=== PATIENT | female | born 1975 | race African-American/Black ===

== ENCOUNTER 2023-02-12 18:12 | Emergency (ER) | payer OTHER, SELFPAY ==
--- NOTE | ~2023-02-12 | XR_ITS ---
EXAMINATION: XR ankle RT min 3V DATE: 02/12/2023 18:33 INDICATION: Right ankle injury. TECHNIQUE: 4 views of right ankle were obtained. COMPARISON: None. FINDINGS: There is an oblique fracture of distal fibula with medial aspect of the fracture line at th e level of the tibial plafond. The distal fracture demonstrates 2 mm posterolateral displacement. The re is widening of the medial ankle mortise. There are chip avulsion fractures of medial malleolus wit h 3 mm distraction. There is mild osteoarthritis of talonavicular joint. Ankle soft tissue tissue swe lling is noted. IMPRESSION: 1. Fractures of medial and lateral malleoli. Reviewed, dictated and finalized at location E.
[2023-02-12 18:17] VITALS: BP 158/92; PULSE 84; RESP 16; TEMP 36.8; O2SAT 99
--- NOTE | 2023-02-12 19:25 | ED.LOWEXIN ---
HPI - Extremity Injury (Lower) General Chief Complaint: Extremity Injury, Lower <GRETEL Cantu Last Filed: 02/12/23 22:51> Stated Complaint: fell/slipped down 2 steps; right ankle pain <GRETEL Cantu Last Filed: 02/12/23 22:51> Time Seen by Provider: 02/12/23 18:23 <GRETEL Cantu Last Filed: 02/12/23 22:51> History of Present Illness HPI Narrative: 48 y/o F reports for evaluation of right ankle pain after she injured it a mechanical fall approximately 1 hour ago. Patient states she was walking on the steps in the rain, slipped on the wet and muddy steps, landed on her right ankle. She denies hitting her head, no loss of consciousness, no other injuries acquired during fall. She is complaining of right medial lateral ankle pain and edema. Denies paresthesias. <GRETEL Cantu Last Filed: 02/12/23 22:51> Related Data Home Medications: Home Medications Medication Instructions Recorded Confirmed doxycycline hyclate 100 mg capsule 100 mg PO DAILY 02/12/23 02/13/23 gabapentin 100 mg capsule 100 mg PO HS 02/12/23 02/13/23 <GRETEL Cantu Last Filed: 02/12/23 22:51> Allergies/Adverse Reactions: Allergies Allergy/AdvReac Type Severity Reaction Status Date / Time No Known Allergies Allergy Verified 02/13/23 13:46 <GRETEL Cantu Last Filed: 02/12/23 22:51> Review of Systems Review of Systems: CONSTITUTIONAL: Denies fever, chills EYES: Denies visual changes, redness, or discharge. ENT: Denies rhinorrhea, congestion, sore throat, or otalgia. CARDIOVASCULAR: Denies chest pain, palpitations, or edema. RESPIRATORY: Denies cough or dyspnea. GASTROINTESTINAL: Denies abdominal pain, nausea, vomiting, or diarrhea. GENITOURINARY: Denies dysuria or hematuria. SKIN: Denies rash or itching. MUSCULOSKELETAL: See HPI NEUROLOGIC: Denies headache, numbness, dizziness, or weakness. PSYCHIATRIC: Denies anxiety or depression. <Sammi Manjarrez PA-C - Last Filed: 02/12/23 22:51> [facility] Past Medical History Medical History: Medical History (Updated 02/17/23 @ 14:05 by Ervin Velez MD) Breast cancer Obesity <Sammi Manjarrez PA-C - Last Filed: 02/12/23 22:51> Social History Social History: Social History (Updated 02/13/23 @ 11:06 by Gissell Hernandez MA) Smoking packs per day: 0.5 Smoking cigarettes per day: 10.0 Years smoked: 12 Smoking pack-years: 6.00 Smoking status: Former smoker Tobacco type: cigarettes Smoking end date: 10/05/19 Alcohol intake: current Alcohol use details: RARE Substance use: never Substance use type: does not use Lack of Transportation: No Lack of Food: Never True Current Housing: I Have Housing Concerned About Future Housing: No Difficulty Paying Gas/Electric Bills: No Difficulty Paying for Meds: No Currently Unemployed: No Education: High School Diploma/GED Difficulty w/ Childcare or Family Care: No Living arrangements: alone Spiritual care concerns: No <Sammi Manjarrez PA-C - Last Filed: 02/12/23 22:51> Exam Narrative: GENERAL: Well-appearing, in no acute distress. HEAD: Normocephalic EYES: PERRLA ENT: Nares clear. Mucous membranes moist. Oropharynx without tonsillar hypertrophy exudate or other lesions. NECK: Supple. CHEST: No respiratory distress. Clear to auscultation, no adventitious breath sounds. HEART: Regular rate and rhythm. No murmur heard. Normal peripheral pulses. EXTREMITIES: RLE: Edema overlying the medial and lateral malleolus with tenderness to palpation. No tenderness to remaining lower extremity. Patient able to wiggle toes. DP pulse 2+. Sensation intact. No overlying skin changes or lesions. SKIN: Warm, dry, no rash. NEURO: No focal deficits. Alert and oriented x3. PSYCH: Normal mood and affect. <Sammi Manjarrez PA-C - Last Filed: 02/12/23 22:51> Course HELP DESK SUPERVISOR/PA Physician Supervision
[2023-02-12] MEDS: IBUPROFEN 600 MG TABLET PO (20:16)
[2023-02-12] MEDS: HYDROcodone/acetaminophen (*CRX) 5-325 MG TABLET 1 TAB PO (20:16)
--- NOTE | 2023-02-12 20:26 | PC.NURSE ---
short leg posterior splint placed, crutches given with teaching
== END 2023-02-12 20:27 | disposition home or self-care (01) ==
PROVIDERS: Emergency Provider Physician Assistant
DX: S82.51XA Displaced fracture of medial malleolus of right tibia, initial encounter for closed fracture (principal); S82.61XA Displaced fracture of lateral malleolus of right fibula, initial encounter for closed fracture; W10.9XXA Fall (on) (from) unspecified stairs and steps, initial encounter
CPT/HCPCS: 29515; 73610; 99284; A9270

== ENCOUNTER 2023-02-18 00:38 | Day surgery (SDC) | payer OTHER, SELFPAY ==
[2023-02-13 13:46] VITALS: BMI 31.3
--- NOTE | 2023-02-13 13:52 | PC.NURSE ---
Report to the Outpatient Waiting Room, entrance under the green pavilion located off [facility], at time 0600 on date 02/18/23. Planned Procedure Time: 0730. Time changes happen often and if your time is changed the preop area will call you the afternoon before. - You and your visitor will be asked to self-screen and do not enter if you have any COVID symptoms. - A mask is optional within the hospital at this time. Patients may have clear liquids (water, carbonated beverages, clear teas, apple juice) until 3 hours prior to surgery with a maximum of 20 ounces. - No food from midnight until time of surgery Take the following medications with a SIP of water the morning of surgery: DOXYCYCLINE, OXYCODONE IF NEEDED DO NOT STOP ANY OF YOUR OTHER PRESCRIPTION MEDICATIONS PRIOR TO SURGERY EXCEPT THE FOLLOWING Medications to discontinue per physician: N/A Date to take last dose: N/A Please no make-up, nail haitian, hairspray, perfume, deodorant, or body powder the day of surgery. No jewelry (including any body piercings) or valuables the day of surgery, leave them at home. Please take a shower or bath the night before, or the morning of, surgery with an antibacterial soap. Wear comfortable, loose fitting clothing. - Jewelry must be removed prior to entering the operating room. Rings and piercings that are not removed may be cut off. - The hospital will not accept responsibility for valuables. - Please leave all valuables, including medications, at home the day of surgery. If you are going home after surgery, a licensed warehouse associate driver must drive you home. - NO public transportation without another adult if you receive anesthesia. - We recommend that an adult stay with you for 24 hours following discharge. - We also recommend that you do not drive, make important decision, drink alcoholic beverages, or take any drugs that were not prescribed by your health care provider for at least 24 hours after your discharge time. Follow any additional instructions given to you from your surgeon. If you or anyone in your household have experienced Covid symptoms in the past week, please notify your surgeon or the nurse liaison at the phone number below for possible testing. Telephone instructions given to PT - CANDIDO PATEL and asked if any additional questions and then verbalized understanding. Patient advised to call surgeon office or pre surgery nurse liaison [phone] if any additional questions.
--- NOTE | 2023-02-17 14:05 | P.PNAN_ITS ---
Anes - Initial Pre Proc Eval Procedure: Operation Date: 02/18/23 07:30 Proposed Procedures p Open Reduction Internal Fixation Right Lateral Malleolus Ankle Fracture - Pravin Kim MD Date/Time: 02/17/23 14:05 Surgeon: Pravin Kim MD Pre Op Diagnosis: right ankle lateral maleolar ankle fx Patient Data Age: 48 Gender: F Height: 1.7 m Weight: 90.75 kg Allergies Allergy/AdvReac Type Severity Reaction Status Date / Time No Known Allergies Allergy Verified 02/18/23 06:39 Home Medications Medication Instructions Recorded Confirmed Type doxycycline hyclate 100 mg capsule 100 mg PO DAILY 02/12/23 02/18/23 History gabapentin 100 mg capsule 100 mg PO HS 02/12/23 02/18/23 History oxycodone 5 mg tablet 5 mg PO Q4H PRN pain #14 tabs 02/12/23 02/18/23 Rx Patient hx anesthesia problems: none Family hx anesthesia problems: none Results Review: All pre-operative results and documents have been reviewed as part of the pre- operative evaluation. [facility] Past Medical History Medical History (Updated 02/17/23 @ 14:05 by Ervin Velez MD) Breast cancer Obesity Social History Social History (Updated 02/13/23 @ 11:06 by Gissell Hernandez MA) Smoking packs per day: 0.5 Smoking cigarettes per day: 10.0 Years smoked: 12 Smoking pack-years: 6.00 Smoking status: Former smoker Tobacco type: cigarettes Smoking end date: 10/05/19 Alcohol intake: current Alcohol use details: RARE Substance use: never Substance use type: does not use Lack of Transportation: No Lack of Food: Never True Current Housing: I Have Housing Concerned About Future Housing: No Difficulty Paying Gas/Electric Bills: No Difficulty Paying for Meds: No Currently Unemployed: No Education: High School Diploma/GED Difficulty w/ Childcare or Family Care: No Living arrangements: alone Spiritual care concerns: No Anes - Eval Final PreProcedure Day of Procedure 02/17/23 14:05 Patient weight: obese Heart: regular rate and rhythm Lungs: clear to auscultation and normal air movement Airway: Mallampati scale class II Neurological: alert and oriented Last oral intake: >/= 8 hours ASA classification: III Emergent: no Anesthetic plan: proceed Anesthesia type and monitoring: general LMA Results Review: All pre-operative results and documents have been reviewed as part of the pre-op erative evaluation. Informed Consent: The patient's anesthetic plan and its attendant risks and benefits were discussed with the patient/family/POA. Questions were solicited and answers provided to the satisfaction of the patient/family/POA.
[2023-02-18] VITALS (9 sets, daily range): BP systolic 134–154; BP diastolic 79–98; PULSE 75–91; RESP 12–20; TEMP 36.1–36.7; O2SAT 93–100
--- NOTE | ~2023-02-18 | XR_ITS ---
EXAMINATION: XR surgery orthopedic DATE: 02/18/2023 08:37 INDICATION: Distal fibular fracture. TECHNIQUE: 3 intraoperative spot fluoroscopic views of right ankle were obtained. I was not present. Fluoroscopy exposure time was 30 seconds. COMPARISON: Right ankle radiographs 02/12/2023 FINDINGS: Bone alignment is normal. There is an oblique fracture of distal fibula in near-anatomic al ignment. There is internal fixation of distal fibula with semitubular plate and screws and interfragm entary screw. The ankle mortise is normal. IMPRESSION: 1. Oblique fracture of distal fibula status post open reduction internal fixation. Reviewed, dictated and finalized at location A. IMPRESSION: 1. Oblique fracture of distal fibula status post open reduction internal fixati on.
[2023-02-18] MEDS: ACETAMINOPHEN 500 MG TABLET 1000 MG PO (06:52)
[2023-02-18] MEDS: LACTATED RINGERS 1,000 ML 30 ML IV CONT ×2 (06:55→08:56)
[2023-02-18] MEDS: KETOROLAC 15 MG/ML VIAL (*BKC) IV PUSH (06:59)
--- NOTE | 2023-02-18 07:21 | WPDHPUPDATE1 ---
History and Physical Update Update Date/Time: 02/18/23 07:21 History and Physical has been reviewed, including an updated exam of the patient. There are NO changes in the patient's condition. Risks, benefits, and alternatives have been discussed and questions answered. Patient agrees to proceed with procedure.
[2023-02-18] MEDS: ceFAZolin 2 GM/D5W 50 ML 2 GM/50 ML BAG IVPB (07:33)
[2023-02-18] MEDS: BUPIVACAINE/EPINEPHRINE 0.25% 50 ML VIAL 30 ML INFILTRATE (08:09)
[2023-02-18] MEDS: oxyCODONE HCL (*CRX) 5 MG TAB IR PO (10:38)
[2023-02-18] MEDS: ONDANSETRON INJ 4 MG/2 ML VIAL IV PUSH (11:01)
--- NOTE | 2023-02-18 12:17 | W.PM.PROC2 ---
Procedure Note - Detailed Date of Procedure 02/18/23 Pre-op Diagnosis Right ankle lateral malleolar ankle fx Post-op Diagnosis Same Procedure Performed ORIF lateral malleolus, [] ankle. Surgeon Pravin Kim MD Anesthesia General Description of Procedure A general anesthetic was administered. The limb was prepped and draped in the usual sterile fashion with a well-padded tourniquet high on the thigh. A bump was placed under the hip. The limb was exsanguinated and the tourniquet inflated to 300 millimeters of mercury during the procedure. A longitudinal incision was created at the distal fibula. Careful dissection was carried down to bone. Perineal nerve branches were protected. The fracture was carefully exposed. Callus and debris was irrigated from the wound. The fracture was brought out to length. Reduction was accomplished with the reduction forceps. Fixation was performed with a combination of cortical and cancellous screws. Fluoroscopy was used throughout the procedure to confirm anatomic reduction and appropriate placement of the implants. The tourniquet was released. Meticulous hemostasis was obtained. Wound was closed in layers with 2-0 Vicryl suture 3-0 Monocryl suture and maryan. A sterile dressing with well padded splint was applied. The patient was extubated and brought to the recovery room in stable condition. There were no complications. Implants: Acumed lateral malleolus plate. Estimated Blood Loss 10 Complications No immediate complications Condition Stable Disposition PACU [facility] Billing Surgery - Charge Forward: Surgery Billing
== END 2023-02-18 11:38 | disposition home or self-care (01) ==
PROVIDERS: Visit Provider Orthopaedic Surgery
PROC: (CPT 27792; principal; 2023-02-18 07:30)
DX: S82.61XA Displaced fracture of lateral malleolus of right fibula, initial encounter for closed fracture (principal); W01.0XXA Fall on same level from slipping, tripping and stumbling without subsequent striking against object, initial encounter; Z87.891 Personal history of nicotine dependence
CPT/HCPCS: 27792; 99199; A9270; C1713; J0690; J1100; J1170; J1885; J2250; J2405; J2704; J3010; J7120